=== PATIENT | male | born 1940 | race Two or more races ===

== ENCOUNTER 2020-06-14 00:42 | Inpatient (IN) | payer OTHER ==
[~2020-06-14] VITALS: Ht 167.6 cm; Wt 62.6 kg
--- NOTE | 2020-06-14 00:40 | NUR ---
RECEIVED PT IN NO ACUTE DISTRESS. UNDER THE CARE OF DR. COREY MENDOZA. DX: UTI, WEAKNESS. PENITENTIARY ASSESSMENT DONE. MULTIPLE SKIN ISSUES NOTED. AMBULANCE WHEELED THE PT VIA GURNEY. PT CONFUSED. SAFETY AND COMFORT PROVIDED. WILL CONTINUE TO MONITOR.
[2020-06-14] MEDS ORDERED: ZOLPIDEM 5 MG TABLET PO PRN (01:15)
[2020-06-14] MEDS ORDERED: Z GUARD REMEDY PASTE 57 GM TUBE TOP PRN (01:15)
[2020-06-14] MEDS ORDERED: ONDANSETRON 4 MG/2 ML VIAL IV PRN (01:15)
[2020-06-14 01:33] VITALS: BP 112/62
[2020-06-14] MEDS ORDERED: CEFTRIAXONE /D5W 50ML IVPB **ER PYXIS IV ONE (02:44)
[2020-06-14] MEDS: IV NS 1000 ML 1,000 ML IV PRN ×2 (04:50→17:01)
[2020-06-14] MEDS: CEFTRIAXONE 1 G in IV DEXTROSE 5% 50 ML IV SCH (04:51)
[2020-06-14 05:16] VITALS: BP 128/61
[2020-06-14] MEDS: PANTOPRAZOLE SODIUM 40 MG TABLET.DR PO SCH (06:38)
--- NOTE | 2020-06-14 06:41 | NUR ---
PT SLEPT INTERMITTENTLY. PT IN NO ACUTE DISTRESS. IV INTACT. SAFETY AND COMFORT PROVIDED. PRESCRIBED MEDICATION GIVEN AND PT TOLERATED IT WELL. PT TURNED AND REPOSITIONED. ALL NEEDS ARE MET. WILL ENDORSE TO INCOMING NURSE FOR CONTINUITY OF CARE.
[2020-06-14] MEDS: ASPIRIN EC 81 MG TABLET.DR PO SCH (08:54)
[2020-06-14] MEDS: ENOXAPARIN SODIUM 40 MG/0.4 ML DISP.SYRIN SQ SCH (09:09)
[2020-06-14 11:30] VITALS: BP 128/59
--- NOTE | 2020-06-14 14:20 | NUR ---
WOUND CARE CONSULT: PT PRESENTS WITH VERY FRAGILE SACRAL SCAR, RT ELBOW LACERATION WHICH IS SUTURED AND WEEPING, DRY WOUNDS TO LOWER LEGS AND TOES, ALL PRESENT ON ADMISSION. RECOMMEND SURGICAL AND DPM CONSULTS. DR GIRALDO AND DR FRASER NOTIFIED OF CONSULT REQUESTS. RT ARM ELEVATED ON PILLOW. RECOMMENDATIONS MADE FOR SKIN PROTECTION. DISCUSSED WITH NURSING STAFF. WILL SEE PRN. IN AGREEMENT WITH PLAN OF CARE.
[2020-06-14 16:00] VITALS: BP 131/57
--- NOTE | 2020-06-14 20:00 | NUR ---
Pt received into care, laying in bed, watching television. Pt is alert/oriented x1 and has no complaints of pain or discomfort at this time. All safety and fall precaution measures are in place. Call light and personal items are within reach at all times. Will continue to monitor and assess.
[2020-06-14 20:02] VITALS: BP 148/57
[2020-06-14] MEDS: ATORVASTATIN 20 MG TABLET PO SCH (21:32)
[2020-06-15] VITALS: BP 130/59
[2020-06-15] MEDS: CEFTRIAXONE 1 G in IV DEXTROSE 5% 50 ML IV SCH (04:14)
[2020-06-15 04:57] VITALS: BP 145/68
--- NOTE | 2020-06-15 05:00 | NUR ---
Patient slept intermittently throughout night with no s/s of acute distress or discomfort noted/observed by this nurse.All safety and fall precautions remain in place. Call light and personal items remain within reach at all times.
[2020-06-15] MEDS: PANTOPRAZOLE SODIUM 40 MG TABLET.DR PO SCH (06:25)
[2020-06-15 07:30] VITALS: BP 157/81
--- NOTE | 2020-06-15 08:00 | NUR ---
AWAKE ALERT AND VERBALLY RESPONSIVE BUT CONFUSED X3. NOTED PATIENT REMAINS CALMED IN BED. DENIES ANY PAIN OR SOB SR ON MONITOR. CLOSELY MONITORED
[2020-06-15] MEDS: ACETAMINOPHEN 325 MG TABLET PO PRN (08:49)
[2020-06-15] MEDS: ASPIRIN EC 81 MG TABLET.DR PO SCH (08:49)
[2020-06-15] MEDS: ENOXAPARIN SODIUM 40 MG/0.4 ML DISP.SYRIN SQ SCH (08:50)
[2020-06-15] MEDS: IV NS 1000 ML 1,000 ML IV PRN ×2 (09:04→23:04)
[2020-06-15 09:24] LABS: BASOPHILS # (AUTO) 0.1 K/uL (0.0-8.0); BASOPHILS % (AUTO) 0.5 % (0.0-2.0); EOSINOPHILS # (AUTO) 0.1 K/uL (0.0-0.7); EOSINOPHILS % (AUTO) 0.8 % (0.0-7.0); HEMATOCRIT 33.6 % (36.7-47.1); HEMOGLOBIN 11.1 g/dL (12.5-16.3); LYMPHOCYTES # (AUTO) 2.5 K/uL (20.0-40.0); LYMPHOCYTES % (AUTO) 25.2 % (20.5-51.5); MEAN CORPUSCULAR HEMOGLOBIN 29.3 uug (23.8-33.4); MEAN CORPUSCULAR HGB CONC 33 g/dL (32.5-36.3); MEAN CORPUSCULAR VOLUME 88.9 fL (73.0-96.2); MONOCYTES # (AUTO) 0.6 K/uL (2.0-10.0); MONOCYTES % (AUTO) 5.6 % (0.0-11.0); NEUTROPHILS # (AUTO) 6.9 K/uL (1.8-8.9); NEUTROPHILS % (AUTO) 67.9 % (38.5-71.5); PLATELET COUNT (AUTO) 403 K/uL (152-348); RED BLOOD CELL COUNT(AUTO) 3.78 MIL/uL (4.06-5.63); WHITE BLOOD COUNT (AUTO) 10.1 K/uL (3.6-10.2)
[2020-06-15 09:45] LABS: CREATININE 0.7 mg/dL (0.6-1.3); MAGNESIUM 1.8 mg/dL (1.8-2.4); PHOSPHOROUS 2.3 mg/dL (2.5-4.9); POTASSIUM 3.2 mmol/L (3.5-5.1)
[2020-06-15 09:46] LABS: BILIRUBIN,DIRECT 0.2 mg/dL (0.0-0.2); BILIRUBIN,TOTAL 0.3 mg/dL (0.2-1.0); TOTAL PROTEIN, SERUM 4.8 g/dL (6.4-8.2)
[2020-06-15] MEDS ORDERED: POTASSIUM CHLORIDE 10 MEQ TAB.PRT.SR PO ONE (13:30)
--- NOTE | 2020-06-15 14:45 | NUR ---
SEEN BY PHYSICAL THERAPIST FOR FOLLOW-UP PATIENT TOLERATED WELL. SEE PT NOTES
[2020-06-15 15:29] VITALS: BP 134/87
[2020-06-15] MEDS ORDERED: NEUTRA PHOS PACKET PO ONE (17:00)
--- NOTE | 2020-06-15 19:45 | NUR ---
PATIENT ALERT BUT FORGETFUL, NO SOB NO CHEST PAIN. PATIENT ON TELE MONITOR SINUS RHYTHM AT THIS TIME. PATIENT R ELBOW WITH DRESSING, PATIENT DENIES PAIN AT THIS TIME. CONT TO MONITOR.
[2020-06-15 20:02] VITALS: BP 148/67
[2020-06-15] MEDS: ATORVASTATIN 20 MG TABLET PO SCH (20:24)
[2020-06-16 00:12] VITALS: BP 134/62
--- NOTE | 2020-06-16 01:04 | NUR ---
PATIENT AWAKE, WITH EPISODE OF AGITATION AND RESISTIVE TO CARE, PATIENT NOTED NO URINE YET, BUT ABDOMEN SOFT, BLADDER SCAN DONE WITH 175CC URINE SHOWED ON SCAN, CONT TO REDIRECT PATIENT BEHAVIOR WITH SOME HELP, REFUSED IV HYDRATION AT THIS TIME, WILL CONT TO OFFER. CONT T MONITOR.
[2020-06-16 04:00] VITALS: BP 132/82
[2020-06-16] MEDS: CEFTRIAXONE 1 G in IV DEXTROSE 5% 50 ML IV SCH (05:15)
--- NOTE | 2020-06-16 05:54 | NUR ---
PATIENT ALERT VERBALLY RESPONSIVE, TELE MONITOR SINUS RHYTHM WITH SOME PVC, PAC. PATIENT HAS NO COMPLAIN OF PAIN, PATIENT R ELBOW LACERATION WITH JACOB DRESSING INTACT, PATIENT HAS BLADDER INCONTINENCE, VOIDING WITH YELLOW COLOR URINE IN MODERATE AMOUNT, TX DONE ON R BUTTOCK WOUNDS, R AND L LEG, AND PATIENT MULTIPLE SKIN BRUISES ON CHEST, BACK , ARMS, FADING FAIRLY, KEPT PATIENT CLEAN AND DRY, CONT TO MONITOR.
[2020-06-16] MEDS: PANTOPRAZOLE SODIUM 40 MG TABLET.DR PO SCH (06:03)
[2020-06-16 06:07] LABS: BASOPHILS % (AUTO) 0.3 % (0.0-2.0); EOSINOPHILS # (AUTO) 0.2 K/uL (0.0-0.7); EOSINOPHILS % (AUTO) 2.2 % (0.0-7.0); HEMATOCRIT 31.5 % (36.7-47.1); HEMOGLOBIN 10.6 g/dL (12.5-16.3); LYMPHOCYTES # (AUTO) 3.2 K/uL (20.0-40.0); LYMPHOCYTES % (AUTO) 33.4 % (20.5-51.5); MEAN CORPUSCULAR HGB CONC 34 g/dL (32.5-36.3); MONOCYTES # (AUTO) 0.7 K/uL (2.0-10.0); MONOCYTES % (AUTO) 7.6 % (0.0-11.0); NEUTROPHILS # (AUTO) 5.4 K/uL (1.8-8.9); NEUTROPHILS % (AUTO) 56.5 % (38.5-71.5); PLATELET COUNT (AUTO) 385 K/uL (152-348); RED BLOOD CELL COUNT(AUTO) 3.54 MIL/uL (4.06-5.63); WHITE BLOOD COUNT (AUTO) 9.5 K/uL (3.6-10.2)
[2020-06-16 06:21] LABS: CREATININE 0.8 mg/dL (0.6-1.3)
[2020-06-16 06:37] LABS: POTASSIUM 3.8 mmol/L (3.5-5.1)
--- NOTE | 2020-06-16 07:04 | NUR ---
RESTING COMFORTABLY, NO SS OF PAIN OR DISTRESS REMAINS SR ON MONITOR
[2020-06-16] MEDS: ASPIRIN EC 81 MG TABLET.DR PO SCH (08:14)
[2020-06-16] MEDS: ACETAMINOPHEN 325 MG TABLET PO PRN ×2 (08:14→20:48)
[2020-06-16] MEDS: ENOXAPARIN SODIUM 40 MG/0.4 ML DISP.SYRIN SQ SCH (08:15)
[2020-06-16 08:40] VITALS: BP 135/67
[2020-06-16] MEDS ORDERED: CEPH-570 PO (14:56)
--- NOTE | 2020-06-16 15:04 | NUR ---
Casket Upholsterer Consultation: Due to COVID-19 droplet precautions, information was gathered from charge nurse Edouard, patient's medical records, and patient's brother Tenzin. 2:15pm: RENITA called and spoke with patient's brother Esteban, . Esteban was available and receptive to speaking with this SW. Esteban reported that the patients lives with him, and that Esteban has been patient's primary caregiver. Esteban stated that several months back, patient was ambulatory with a FWW and able to tend to some of his basic ADL's (eating, bathing, toileting) with minimal assistance, however he noticed a decline in the patient's functional level over the last 2-3 months. Esteban stated that patient's sudden functional decline resulted in multiple falls and injuries, such as lacerations needed stitches, and that he had to take the patient to urgent care on multiple occasions for medical care. Per nursing and medical records, patient is oriented x 1, has a sacral wound, and a laceration with stitches on his elbow. RENITA spoke with PT Maryan, who stated that patient requires mod-max level of assistance. Patient's current functional level discussed with Esteban, and Esteban expressed concern regarding his ability to take care of the patient at this time. Alternate discharge plans, such as SNF, discussed with Esteban, and Esteban expressed agreement with SNF. RENITA stated that case management would be looking into SNF options, based on patient's insurance. RENITA to work with CM to ensure a safe discharge plan for the patient. RENITA spoke with HECTOR Perdomo [phone] and informed her of above. Leanne stated she will look into SNF benefits for the patient.
--- NOTE | 2020-06-16 15:43 | NUR ---
DC PLANNING INITIATED, PLAN SNF PER CM AND BROTHER MD AWARE. PATIENT REMAINS STABLE TOLERATING PT/OT. STATUS CHANGED TO MED/SURG
[2020-06-16 16:16] VITALS: BP 126/57
[2020-06-16] MEDS: IV NS 1000 ML 1,000 ML IV PRN (16:54)
[2020-06-16 19:50] VITALS: BP 96/66
--- NOTE | 2020-06-16 20:00 | NUR ---
RECEIVED PATIENT IN BED, ALERT BUT WITH CONFUSION, PATIENT AGITATED, REFUSED CARE, TRIES TO CLIMB OUT OF BED, PATIENT REFUSED IV HYDRATION, HYDRATION ON HOLD AT THIS TIME. PATIENT WAS TRIED TO REDIRECT BEHAVIOR BUT NOT EFFECTIVE, WILL TRIES TO OFFER CARE AND IV AGAIN LATER.
[2020-06-16] MEDS: ATORVASTATIN 20 MG TABLET PO SCH (20:48)
[2020-06-17 04:37] VITALS: BP 144/67
[2020-06-17] MEDS: CEFTRIAXONE 1 G in IV DEXTROSE 5% 50 ML IV SCH (05:22)
[2020-06-17] MEDS: PANTOPRAZOLE SODIUM 40 MG TABLET.DR PO SCH (06:30)
--- NOTE | 2020-06-17 07:22 | NUR ---
Patient awake with confusion, no sob no chest pain, patient denies pain discomfort. Patient r elbow dressing intact, patient has dependent edema on both hand and arms, kept both arms elevated. Patient dressing r buttock intact, and on left legs. patient has episode of resistive with care, patient has advancing dementia, cont to reorient patient, cont to monitor.
--- NOTE | 2020-06-17 08:00 | NUR ---
received pt. resting in bed alert oriented x2. pt. denies pain/ discomfort. pt. denies sob/ difficulty breathing. IV in L Hand 20 gauge intact patent. L hand has edema elevated on pillow above heart removed coban and instructed pt. not to remove IV. safety measures in place. call light within reach. will continue to monitor pt.
[2020-06-17] MEDS: ASPIRIN EC 81 MG TABLET.DR PO SCH (08:46)
[2020-06-17] MEDS: ENOXAPARIN SODIUM 40 MG/0.4 ML DISP.SYRIN SQ SCH (08:47)
[2020-06-17 15:39] VITALS: BP 104/53
--- NOTE | 2020-06-17 18:34 | NUR ---
spoke to hospice case manager Magnus, discharge is pending until authorization number is sent to facility [facility]. all discharge paper work completed. will endorse to pm nurse.
--- NOTE | 2020-06-17 19:30 | NUR ---
RECEIVED PT AWAKE, ALERT AND ORIENTEDX2. PT IN NO ACUTE DISTRESS. PT CONFUSED. PT NEEDS REORIENTATION. SAFETY AND COMFORT PROVIDED. WILL CALL CASE MANGER FOR UPDATE REGARDING PT DISCHARGE WILL CONTINUE TO MONITOR.
[2020-06-17 20:06] VITALS: BP 133/69
[2020-06-17] MEDS: ATORVASTATIN 20 MG TABLET PO SCH (20:42)
--- NOTE | 2020-06-17 21:00 | NUR ---
FIND OUT PT WILL NOT BE DISCHARGE TONIGHT ACCORDING TO RECEIVING SPECIALIST. REVENUE MANAGER AWARE. ANOTHER RN INFORMED THE FAMILY OF THE PT.
[2020-06-18 04:02] VITALS: BP 115/74
[2020-06-18] MEDS: CEFTRIAXONE 1 G in IV DEXTROSE 5% 50 ML IV SCH (04:07)
[2020-06-18] MEDS: PANTOPRAZOLE SODIUM 40 MG TABLET.DR PO SCH (06:29)
--- NOTE | 2020-06-18 07:04 | NUR ---
PT SLEPT INTERMITTENTLY. PRESCRIBED MEDICATION GIVEN AND PT TOLERATED IT WELL. SAFETY AND COMFORT PROVIDED. WOUND DRESSING CHANGED. PT CONFUSED BUT REDIRECTABLE. PT FOLLOWS COMMAND INCONSISTENTLY. WOUND DRESSING CHANGED. PT IV INTACT.PT TURNED AND REPOSITIONED. SAFETY AND COMFORT PROVIDED. WILL ENDORSE TO INCOMING NURSE FOR CONTINUITY OF CARE.
--- NOTE | 2020-06-18 08:00 | NUR ---
received pt. resting in bed alert oriented x2. pt. denies pain/ discomfort. pt. denies sob/ difficulty breathing. IV in L Hand 20 gauge intact patent. safety measures in place. call light within reach. will continue to monitor pt.
[2020-06-18] MEDS: ASPIRIN EC 81 MG TABLET.DR PO SCH (08:58)
[2020-06-18] MEDS: ENOXAPARIN SODIUM 40 MG/0.4 ML DISP.SYRIN SQ SCH (09:00)
[2020-06-18 11:41] VITALS: BP 114/57
--- NOTE | 2020-06-18 11:43 | NUR ---
pt. discharged to [facility]. report given to marin JON. IV removed. Id band removed. pt. vitals stable. pt. unable to sign discharge paperwork signed with another nurse. all belongings with pt.
== END 2020-06-18 13:50 | DRG 689 ==
LOC: TELE3 00:42 → MEDSURG3 06-16 11:00
PROVIDERS: ADMIT Internal Medicine; ATTEND Nurse Practitioner Acute Care
DX: N39.0 Urinary tract infection, site not specified (principal); L89.153 Pressure ulcer of sacral region, stage 3; E43 Unspecified severe protein-calorie malnutrition; D68.69 Other thrombophilia; E87.1 Hypo-osmolality and hyponatremia; E78.5 Hyperlipidemia, unspecified; E86.1 Hypovolemia; D63.8 Anemia in other chronic diseases classified elsewhere; F03.90 Unspecified dementia, unspecified severity, without behavioral disturbance, psychotic disturbance, mood disturbance, and anxiety; I10 Essential (primary) hypertension; Z91.81 History of falling; E87.6 Hypokalemia; R73.9 Hyperglycemia, unspecified; S90.411D Abrasion, right great toe, subsequent encounter; R26.81 Unsteadiness on feet; D47.3 Essential (hemorrhagic) thrombocythemia; W19.XXXA Unspecified fall, initial encounter; G31.9 Degenerative disease of nervous system, unspecified; Y93.9 Activity, unspecified; I45.10 Unspecified right bundle-branch block; Z68.22 Body mass index [BMI] 22.0-22.9, adult; S51.011D Laceration without foreign body of right elbow, subsequent encounter; W19.XXXD Unspecified fall, subsequent encounter; S80.812D Abrasion, left lower leg, subsequent encounter; S80.811D Abrasion, right lower leg, subsequent encounter; S90.411A Abrasion, right great toe, initial encounter; Y92.89 Other specified places as the place of occurrence of the external cause
CPT/HCPCS: 36415; 70030-TC; 71045; 83735; 84100; 85025; 93307; C1758; G0378; J0696; J1650; J7030; J7060